=== PATIENT | male | born 1960 | race Caucasian/White ===

== ENCOUNTER → 2016-05-19 | Outpatient (CLI) | payer SELFPAY ==
[~2016-05-19] MED LIST: ADVAIR 500/501 DISK IH; DAILY VITE1 EAC1 PO; MEDROL32 MG PO; NAPROSYN500 MG PO; PRILOSEC20 MG PO; SPIRIVA1 INHALATI IH; VENTOLIN HFA18 GM IH
== END | disposition home or self-care (01) ==
LOC: RAD 08:36
DX: R16.0 Hepatomegaly, not elsewhere classified (principal); R10.9 Unspecified abdominal pain; R74.8 Abnormal levels of other serum enzymes
CPT/HCPCS: 76700

== ENCOUNTER 2016-05-23 12:46 | Inpatient (IN) | payer OTHER ==
[~2016-05-23] VITALS: Ht 172.7 cm; Wt 59.8 kg
[~2016-05-23 12:46] MED LIST changes: -ADVAIR 500/501 DISK IH; -DAILY VITE1 EAC1 PO; -MEDROL32 MG PO; -PRILOSEC20 MG PO; -SPIRIVA1 INHALATI IH; -TRAMADOL HCL50 MG PO; -VENTOLIN HFA18 GM IH
[2016-05-23] MEDS ORDERED: PRILOSEC20 MG PO (14:01)
[2016-05-23 14:37] LABS: HEMATOCRIT 47.5 % (38.0-50.0); MCH 29.2 PG (29.0-34.0); MCHC 33.1 G/DL (30.0-36.0); MCV 88.5 FL (86-99); MEAN PLAT.VOLUME 10.1 uM^3 (9.0-12.4); PLATELET COUNT 374 K/uL (156-360); RBC DIS.WIDTH-CV 14.4 % (11.8-14.6); RBC DIS.WIDTH-SD 46.1 % (39-53); RED BLOOD COUNT 5.37 M/uL (4.00-5.50); WHITE BLOOD COUNT 8.5 K/uL (4.1-10.2)
[2016-05-23 14:46] LABS: CHLORIDE 99 mEq/L (99-109); POTASSIUM 4.4 mEq/L (3.7-5.4); SODIUM 137 mEq/L (136-147)
[2016-05-23 14:48] LABS: GLUCOSE 165 mg/dL (70-99)
[2016-05-23 14:50] LABS: ANION GAP 11 MEQ/L (2-14); TOTAL BILIRUBIN 0.5 mg/dL (0.0-1.0)
[2016-05-23 14:52] LABS: ALKALINE PHOSPHATASE 164 IU/L (3-129); GFR ESTIMATE (CALCULATED) > 59 mL/min/
[2016-05-23 14:53] LABS: UREA NITROGEN (BUN) 18 mg/dL (9-23)
[2016-05-23 14:56] LABS: LIPASE 19 U/L (1.0-51.0)
[2016-05-23] MEDS ORDERED: VENTOLIN HFA18 GM IH (17:37)
[2016-05-23] MEDS ORDERED: DAILY VITE1 EAC1 PO (17:37)
[2016-05-23] MEDS ORDERED: ADVAIR 500/501 DISK IH (17:37)
[2016-05-23] MEDS ORDERED: SPIRIVA1 INHALATI IH (17:37)
[2016-05-23] MEDS ORDERED: MEDROL32 MG PO (17:38)
[2016-05-23 19:33] LABS: INTER. NORMALIZED RATIO 1.1; PROTHROMBIN TIME 11.7 (9.2-11.2); PTT 26.8 (25-32)
[2016-05-23 20:39] VITALS: BP 140/76
[2016-05-24 05:43] VITALS: BP 125/71
[2016-05-24 05:52] LABS: POINT-OF-CARE METER ID UU13113725
[2016-05-24 07:00] LABS: HEMATOCRIT 36.8 % (38.0-50.0); MCH 29.6 PG (29.0-34.0); MCHC 32.6 G/DL (30.0-36.0); MCV 90.6 FL (86-99); MEAN PLAT.VOLUME 10.3 uM^3 (9.0-12.4); PLATELET COUNT 286 K/uL (156-360); RBC DIS.WIDTH-CV 14.6 % (11.8-14.6); RBC DIS.WIDTH-SD 48.5 % (39-53)
[2016-05-24 07:02] LABS: RED BLOOD COUNT 4.06 M/uL (4.00-5.50); WHITE BLOOD COUNT 13.5 K/uL (4.1-10.2)
[2016-05-24 07:11] LABS: ALKALINE PHOSPHATASE 97 IU/L (3-129); ANION GAP 6 MEQ/L (2-14); CHLORIDE 105 MEQ/L (99-109); GFR ESTIMATE (CALCULATED) > 59 mL/min/; POTASSIUM 4.7 MEQ/L (3.7-5.4); SAMPLE HEMOLYSIS CHECK 0; SAMPLE ICTERIC CHECK 0; SAMPLE LIPEMIA CHECK 0; SODIUM 137 MEQ/L (136-147); TOTAL BILIRUBIN 0.5 MG/DL (0.0-1.0); UREA NITROGEN (BUN) 12 mg/dL (9-23)
[2016-05-24 07:14] LABS: GLUCOSE 120 mg/dL (70-99)
[2016-05-24 07:15] VITALS: BP 130/65
[2016-05-24 08:15] LABS: Estimated Average Glucose 126 mg/dL (70-123)
[2016-05-24 10:45] VITALS: BP 137/79
[2016-05-24 15:11] VITALS: BP 144/71
[2016-05-24 19:01] VITALS: BP 114/70
[2016-05-24 23:09] VITALS: BP 111/57
[2016-05-25 03:03] VITALS: BP 120/60
[2016-05-25 07:02] VITALS: BP 149/71
[2016-05-25 11:59] LABS: BASOPHIL COUNT 0.1 K/uL (0-0.1); EOSINOPHIL (%) 3.2 % (0-5); EOSINOPHIL COUNT 0.4 K/uL (0-0.3); HEMATOCRIT 40.7 % (38.0-50.0); IMMATURE GRANULOCYTE (%) 0.2 % (0.0-0.7); INSTRUMENT ABS NEUTROPHIL CT 9.2 K/uL; LYMPHOCYTE COUNT 0.9 K/uL (1.0-2.8); MCH 29.1 PG (29.0-34.0); MCHC 32.4 G/DL (30.0-36.0); MCV 89.6 FL (86-99); MEAN PLAT.VOLUME 10.1 uM^3 (9.0-12.4); MONOCYTE (%) 11.4 % (3-12); MONOCYTE COUNT 1.4 K/uL (0-0.8); NEUTROPHIL (%) 76.9 % (45-76); NEUTROPHIL COUNT 9.2 K/uL (1.8-6.4); PLATELET COUNT 305 K/uL (156-360); RBC DIS.WIDTH-CV 14.7 % (11.8-14.6); RBC DIS.WIDTH-SD 48.4 % (39-53); RED BLOOD COUNT 4.54 M/uL (4.00-5.50)
[2016-05-25 13:05] LABS: ANION GAP 9 MEQ/L (2-14); CHLORIDE 103 MEQ/L (99-109); GFR ESTIMATE (CALCULATED) > 59 mL/min/; POTASSIUM 4.2 MEQ/L (3.7-5.4); SAMPLE HEMOLYSIS CHECK 0; SAMPLE ICTERIC CHECK 0; SAMPLE LIPEMIA CHECK 0; SODIUM 140 MEQ/L (136-147); UREA NITROGEN (BUN) 8 mg/dL (9-23)
[2016-05-25 13:06] LABS: GLUCOSE 82 mg/dL (70-99)
[2016-05-25 15:42] VITALS: BP 151/86
[2016-05-25 22:58] VITALS: BP 136/71
[2016-05-26 03:46] VITALS: BP 127/63
[2016-05-26 07:41] VITALS: BP 136/81
[2016-05-26 12:16] VITALS: BP 152/80
[2016-05-26 17:12] VITALS: BP 171/79
[2016-05-26 19:44] VITALS: BP 158/85
[2016-05-26 22:59] VITALS: BP 132/79
[2016-05-27 03:25] VITALS: BP 142/82
[2016-05-27 07:33] LABS: BASOPHIL COUNT 0.1 K/uL (0-0.1); EOSINOPHIL (%) 14.1 % (0-5); EOSINOPHIL COUNT 1.2 K/uL (0-0.3); HEMATOCRIT 34.3 % (38.0-50.0); IMMATURE GRANULOCYTE (%) 0.4 % (0.0-0.7); INSTRUMENT ABS NEUTROPHIL CT 5.1 K/uL; MCH 29.3 PG (29.0-34.0); MCHC 32.7 G/DL (30.0-36.0); MCV 89.8 FL (86-99); MEAN PLAT.VOLUME 10.4 uM^3 (9.0-12.4); MONOCYTE (%) 11.3 % (3-12); MONOCYTE COUNT 0.9 K/uL (0-0.8); NEUTROPHIL COUNT 5.1 K/uL (1.8-6.4); PLATELET COUNT 253 K/uL (156-360); RBC DIS.WIDTH-CV 14.5 % (11.8-14.6); RED BLOOD COUNT 3.82 M/uL (4.00-5.50)
[2016-05-27 07:38] LABS: WHITE BLOOD COUNT 8.3 K/uL (4.1-10.2)
[2016-05-27 07:58] LABS: ANION GAP 8 MEQ/L (2-14); CHLORIDE 105 MEQ/L (99-109); GFR ESTIMATE (CALCULATED) > 59 mL/min/; POTASSIUM 4.3 MEQ/L (3.7-5.4); SAMPLE HEMOLYSIS CHECK 0; SAMPLE ICTERIC CHECK 0; SAMPLE LIPEMIA CHECK 0; SODIUM 144 MEQ/L (136-147); UREA NITROGEN (BUN) 5 mg/dL (9-23)
[2016-05-27 08:03] LABS: GLUCOSE 112 mg/dL (70-99)
[2016-05-27 08:28] VITALS: BP 138/75
[2016-05-27 12:03] VITALS: BP 148/77
[2016-05-27 16:51] VITALS: BP 151/70
[2016-05-27 18:43] VITALS: BP 142/78
[2016-05-27 22:40] VITALS: BP 141/62
[2016-05-28 00:49] LABS: POINT-OF-CARE METER ID UU13113725
[2016-05-28 03:56] VITALS: BP 158/72
[2016-05-28 05:45] LABS: POINT-OF-CARE METER ID UU13113725
[2016-05-28 06:55] LABS: BASOPHIL COUNT 0.1 K/uL (0-0.1); EOSINOPHIL COUNT 1.6 K/uL (0-0.3); HEMATOCRIT 33.6 % (38.0-50.0); IMMATURE GRANULOCYTE (%) 0.2 % (0.0-0.7); INSTRUMENT ABS NEUTROPHIL CT 4.7 K/uL; MCH 28.9 PG (29.0-34.0); MCHC 32.7 G/DL (30.0-36.0); MCV 88.4 FL (86-99); MEAN PLAT.VOLUME 10.1 uM^3 (9.0-12.4); MONOCYTE (%) 10.8 % (3-12); MONOCYTE COUNT 0.9 K/uL (0-0.8); NEUTROPHIL (%) 57.2 % (45-76); NEUTROPHIL COUNT 4.7 K/uL (1.8-6.4); PLATELET COUNT 283 K/uL (156-360); RBC DIS.WIDTH-CV 14.4 % (11.8-14.6); RBC DIS.WIDTH-SD 46.4 % (39-53); WHITE BLOOD COUNT 8.3 K/uL (4.1-10.2)
[2016-05-28 07:47] VITALS: BP 125/70
[2016-05-28 07:48] LABS: ANION GAP 7 MEQ/L (2-14); CHLORIDE 107 MEQ/L (99-109); GFR ESTIMATE (CALCULATED) > 59 mL/min/; GLUCOSE 100 mg/dL (70-99); SAMPLE HEMOLYSIS CHECK 0; SAMPLE ICTERIC CHECK 0; SAMPLE LIPEMIA CHECK 0; SODIUM 140 MEQ/L (136-147); UREA NITROGEN (BUN) 4 mg/dL (9-23)
[2016-05-28 07:49] LABS: POTASSIUM 3.3 MEQ/L (3.7-5.4)
[2016-05-28 11:06] VITALS: BP 142/77
[2016-05-28 12:56] LABS: POINT-OF-CARE METER ID UU13113725
[2016-05-28 18:03] LABS: POINT-OF-CARE METER ID UU13113725
[2016-05-28 18:33] VITALS: BP 139/76
[2016-05-28 19:15] VITALS: BP 173/79
[2016-05-28 22:43] VITALS: BP 140/65
[2016-05-29 07:49] VITALS: BP 137/62
[2016-05-29] MEDS ORDERED: TRAMADOL HCL50 MG PO (14:27)
[2016-05-29 15:05] VITALS: BP 134/68
[2016-05-29 18:15] LABS: C DIFF TOXIN NEGATIVE (NEGATIVE)
[2016-05-29 18:21] LABS: PROBE CHECK PASS; SPECIMEN PROCESSING CONTROL PASS
== END 2016-05-29 17:05 | disposition home or self-care (01) | DRG 345 ==
LOC: EME 12:46 → 5EAST 18:11 → EDOF 18:11 → 5EAST 20:06
PROVIDERS: Hospitalist; Internal Medicine; Physician Assistant Medical; Surgery
DX: C18.0 Malignant neoplasm of cecum (principal); K56.69 Other intestinal obstruction; C78.7 Secondary malignant neoplasm of liver and intrahepatic bile duct; R19.7 Diarrhea, unspecified; J44.9 Chronic obstructive pulmonary disease, unspecified; R91.8 Other nonspecific abnormal finding of lung field; R73.9 Hyperglycemia, unspecified; K21.9 Gastro-esophageal reflux disease without esophagitis; R68.3 Clubbing of fingers; Z87.891 Personal history of nicotine dependence
CPT/HCPCS: 71260; 74176; 80048; 80053; 82378; 82948; 83036; 83690; 85025; 85027; 85610; 85730; 87493; 88305; 88309; 88341 TC; 88342 TC; 93005; 94640; 94640 76; 94760; 94799; 99202; 99281; 99285; J0131; J0330; J1100; J1170; J1644; J1815; J2060; J2250; J2270; J2405; J2710; J3010; J7030; J7042; S0028

== ENCOUNTER → 2016-05-23 | Outpatient (CLI) | payer SELFPAY ==
[~2016-05-23] MED LIST changes: +TRAMADOL HCL50 MG PO
== END | disposition home or self-care (01) ==
LOC: RAD 08:08
DX: K76.9 Liver disease, unspecified (principal); R91.1 Solitary pulmonary nodule; J43.9 Emphysema, unspecified
CPT/HCPCS: 71260

== ENCOUNTER 2016-06-17 08:02 | Inpatient (IN) | payer OTHER ==
[~2016-06-17] VITALS: Ht 172.7 cm; Wt 56.0 kg
[~2016-06-17 08:02] MED LIST changes: +ADVAIR 500/501 DISK IH; +DAILY VITE1 EAC1 PO; +MEDROL32 MG PO; +PRAVACHOL10 MG PO; +PRILOSEC20 MG PO; +SINGULAIR10 MG PO; +SPIRIVA1 INHALATI IH; +TRAMADOL HCL50 MG PO; +VENTOLIN HFA18 GM IH; +VITAMIN D31000 UNIT PO
[2016-06-17 08:39] VITALS: BP 138/75
[2016-06-17 12:25] VITALS: BP 144/80
[2016-06-17 14:43] VITALS: BP 136/81
[2016-06-17 15:07] VITALS: BP 134/87
[2016-06-17 19:59] VITALS: BP 172/83
[2016-06-18] VITALS (7 sets, daily range): BP systolic 132–151; BP diastolic 74–85
[2016-06-19 04:31] VITALS: BP 156/75
[2016-06-19 05:11] VITALS: BP 108/50
[2016-06-19 07:53] VITALS: BP 142/76
== END 2016-06-19 11:40 | disposition home or self-care (01) | DRG 375 ==
LOC: SDC 08:02 → EDSTATUS 11:08 → 2SOUTH 11:08 → SDC 16:08 → 3EAST 18:09
DX: C18.9 Malignant neoplasm of colon, unspecified (principal); J95.811 Postprocedural pneumothorax; C78.7 Secondary malignant neoplasm of liver and intrahepatic bile duct; Y92.530 Ambulatory surgery center as the place of occurrence of the external cause; I48.91 Unspecified atrial fibrillation
CPT/HCPCS: 36415; 49405; 71010; 80053; 82378; 85025; 85610; 85730; 94799; C1751; C1769; J0690; J1100; J1644; J2250; J2765; J3010; J7050; S0020

== ENCOUNTER 2016-07-14 10:12 | Observation (INO) | payer OTHER ==
[~2016-07-14] VITALS: Ht 172.7 cm; Wt 58.8 kg
[~2016-07-14 10:12] MED LIST changes: +INCRUSE ELLI62.5 MCG IH; +PROTONIX40 MG PO; +THEO-24400 MG PO
[2016-07-14 11:23] LABS: HEMATOCRIT 46.6 % (38.0-50.0); MCHC 32.6 G/DL (30.0-36.0); MCV 88.9 FL (86-99); MEAN PLAT.VOLUME 10.1 uM^3 (9.0-12.4); PLATELET COUNT 350 K/uL (156-360); RBC DIS.WIDTH-SD 45.1 % (39-53); RED BLOOD COUNT 5.24 M/uL (4.00-5.50); WHITE BLOOD COUNT 7.7 K/uL (4.1-10.2)
[2016-07-14 11:37] LABS: CHLORIDE 98 mEq/L (99-109); POTASSIUM 4.5 mEq/L (3.7-5.4)
[2016-07-14 11:38] LABS: SODIUM 137 mEq/L (136-147)
[2016-07-14 11:39] LABS: GLUCOSE 125 mg/dL (70-99)
[2016-07-14 11:41] LABS: ANION GAP 12 MEQ/L (2-14)
[2016-07-14 11:43] LABS: GFR ESTIMATE (CALCULATED) > 59 mL/min/
[2016-07-14 11:44] LABS: UREA NITROGEN (BUN) 13 mg/dL (9-23)
[2016-07-14 11:45] LABS: TROP-I INTERPRETATION NEGATIVE; TROPONIN-I 0.03 ng/mL (0.0-0.30)
[2016-07-14 12:51] LABS: TOTAL BILIRUBIN 0.7 mg/dL (0.0-1.0)
[2016-07-14 12:52] LABS: ALKALINE PHOSPHATASE 255 IU/L (3-129)
[2016-07-14] MEDS ORDERED: PANTOPRAZOLE SO40 MG PO (14:20)
[2016-07-14] MEDS ORDERED: ADVAIR 250/501 DISK IH (14:20)
[2016-07-14] MEDS ORDERED: THEOPHYLLINE400 MG PO (14:20)
[2016-07-14] MEDS ORDERED: DUONEB 2.5-0.5 M3 ML AEROSOL (16:59)
[2016-07-14] MEDS ORDERED: SPIRIVA1 INHALATI IH (17:00)
[2016-07-14 18:34] VITALS: BP 132/78
[2016-07-14 20:00] VITALS: BP 143/79
[2016-07-14 20:07] LABS: TROP-I INTERPRETATION NEGATIVE; TROPONIN-I 0.13 ng/mL (0.0-0.30)
[2016-07-15 06:14] LABS: ANION GAP 9 MEQ/L (2-14); CHLORIDE 97 MEQ/L (99-109); GFR ESTIMATE (CALCULATED) > 59 mL/min/; GLUCOSE 113 mg/dL (70-99); POTASSIUM 3.9 MEQ/L (3.7-5.4); SAMPLE HEMOLYSIS CHECK 0; SAMPLE ICTERIC CHECK 0; SAMPLE LIPEMIA CHECK 0; SODIUM 133 MEQ/L (136-147); UREA NITROGEN (BUN) 16 mg/dL (9-23)
[2016-07-15 06:18] LABS: TROP-I INTERPRETATION NEGATIVE; TROPONIN-I 0.17 ng/mL (0.0-0.30)
[2016-07-15 12:13] VITALS: BP 112/67
== END 2016-07-15 15:28 | disposition home or self-care (01) ==
LOC: EME 10:12 → 5WEST 16:18 → EDOF 16:18 → 5WEST 17:24
PROVIDERS: Internal Medicine
DX: R07.89 Other chest pain (principal); C78.01 Secondary malignant neoplasm of right lung; C78.02 Secondary malignant neoplasm of left lung; C78.7 Secondary malignant neoplasm of liver and intrahepatic bile duct; J44.9 Chronic obstructive pulmonary disease, unspecified; Z85.038 Personal history of other malignant neoplasm of large intestine; Z87.891 Personal history of nicotine dependence; R73.03 Prediabetes; E78.5 Hyperlipidemia, unspecified
CPT/HCPCS: 71020; 71275; 80048; 80053; 84484; 85027; 93005; 94640; 99202; 99281; 99285; G0378; J1170; J1650; J2270; J7030

== ENCOUNTER 2016-08-26 15:50 | Observation (INO) | payer OTHER ==
[~2016-08-26] VITALS: Ht 172.7 cm; Wt 56.7 kg
[~2016-08-26 15:50] MED LIST changes: +ADVAIR 250/501 DISK IH; +DUONEB 2.5-0.5 M3 ML AEROSOL; +PANTOPRAZOLE SO40 MG PO; +THEOPHYLLINE400 MG PO
[2016-08-26 16:56] LABS: BASOPHIL COUNT 0.1 K/uL (0-0.1); EOSINOPHIL (%) 2.2 % (0-5); EOSINOPHIL COUNT 0.2 K/uL (0-0.3); HEMATOCRIT 39.2 % (38.0-50.0); IMMATURE GRANULOCYTE (%) 0.5 % (0.0-0.7); IMMATURE GRANULOCYTE COUNT 0.1 K/uL; INSTRUMENT ABS NEUTROPHIL CT 6.6 K/uL; LYMPHOCYTE COUNT 1.5 K/uL (1.0-2.8); MCH 28.7 PG (29.0-34.0); MCHC 32.4 G/DL (30.0-36.0); MCV 88.7 FL (86-99); MEAN PLAT.VOLUME 10.1 uM^3 (9.0-12.4); MONOCYTE (%) 12.9 % (3-12); MONOCYTE COUNT 1.3 K/uL (0-0.8); NEUTROPHIL (%) 68.4 % (45-76); NEUTROPHIL COUNT 6.6 K/uL (1.8-6.4); RBC DIS.WIDTH-CV 15.3 % (11.8-14.6); RBC DIS.WIDTH-SD 48.5 % (39-53); RED BLOOD COUNT 4.42 M/uL (4.00-5.50); WHITE BLOOD COUNT 9.7 K/uL (4.1-10.2)
[2016-08-26 16:58] LABS: PLATELET COUNT 205 K/uL (156-360)
[2016-08-26 17:06] LABS: CHLORIDE 103 mEq/L (99-109); POTASSIUM 3.8 mEq/L (3.7-5.4); SODIUM 139 mEq/L (136-147)
[2016-08-26 17:09] LABS: GLUCOSE 110 mg/dL (70-99)
[2016-08-26 17:10] LABS: ANION GAP 11 MEQ/L (2-14); TOTAL BILIRUBIN 0.5 mg/dL (0.0-1.0)
[2016-08-26 17:12] LABS: ALKALINE PHOSPHATASE 123 IU/L (3-129); GFR ESTIMATE (CALCULATED) > 59 mL/min/
[2016-08-26 17:13] LABS: UREA NITROGEN (BUN) 11 mg/dL (9-23)
[2016-08-26 17:16] LABS: LIPASE 40 U/L (1.0-51.0)
[2016-08-26 17:19] LABS: TROP-I INTERPRETATION NEGATIVE; TROPONIN-I < 0.01 ng/mL (0.0-0.30)
[2016-08-26] MEDS ORDERED: PROVENTIL,2.5 MG/3 M IH (20:23)
[2016-08-26] MEDS ORDERED: OXYCODONE HCL10 MG PO (20:24)
[2016-08-26] MEDS ORDERED: ZOFRAN ODT8 MG PO (20:24)
[2016-08-26] MEDS ORDERED: LIDOCAINE-PRIL1 EACH TP (20:25)
[2016-08-26 23:33] VITALS: BP 131/83
[2016-08-27 01:03] LABS: TROP-I INTERPRETATION NEGATIVE; TROPONIN-I < 0.01 ng/mL (0.0-0.30)
[2016-08-27 03:57] VITALS: BP 147/80
[2016-08-27 05:45] LABS: HEMATOCRIT 35.7 % (38.0-50.0); MCH 29.7 PG (29.0-34.0); MCHC 33.3 G/DL (30.0-36.0); MEAN PLAT.VOLUME 10.6 uM^3 (9.0-12.4); PLATELET COUNT 207 K/uL (156-360); RBC DIS.WIDTH-CV 15.4 % (11.8-14.6); RBC DIS.WIDTH-SD 49.7 % (39-53); RED BLOOD COUNT 4.01 M/uL (4.00-5.50); WHITE BLOOD COUNT 7.2 K/uL (4.1-10.2)
[2016-08-27 06:19] LABS: TROP-I INTERPRETATION NEGATIVE; TROPONIN-I < 0.01 ng/mL (0.0-0.30)
[2016-08-27 07:12] LABS: ADD MIUA? NO; BILIRUBIN NEGATIVE; BLOOD NEGATIVE; COLOR YELLOW ((YELLOW)); GLUCOSE (STRIP) NEGATIVE; KETONES NEGATIVE; LEUKOCYTES NEGATIVE; NITRITE NEGATIVE; PROTEIN (STRIP) NEGATIVE; SPECIFIC GRAVITY 1.029 (1.000-1.030); UROBILINOGEN 0.2 MG/DL (0.2-1.0)
[2016-08-27 07:27] VITALS: BP 128/78
[2016-08-27 08:03] LABS: GFR ESTIMATE (CALCULATED) > 59 mL/min/; GLUCOSE 81 mg/dL (70-99)
[2016-08-27 08:04] LABS: UREA NITROGEN (BUN) 10 mg/dL (9-23)
[2016-08-27 08:35] LABS: CHLORIDE 105 mEq/L (99-109); SODIUM 142 mEq/L (136-147)
[2016-08-27 08:38] LABS: ANION GAP 11 MEQ/L (2-14)
[2016-08-27 12:00] VITALS: BP 130/63
== END 2016-08-27 12:05 | disposition home or self-care (01) ==
LOC: EME 15:50 → EDOF 22:04 → 5WEST 23:27
PROVIDERS: Hospitalist; Physician Assistant
DX: R07.9 Chest pain, unspecified (principal); R50.9 Fever, unspecified; J43.9 Emphysema, unspecified; R91.8 Other nonspecific abnormal finding of lung field; R16.0 Hepatomegaly, not elsewhere classified; C18.9 Malignant neoplasm of colon, unspecified; C78.7 Secondary malignant neoplasm of liver and intrahepatic bile duct; Z92.21 Personal history of antineoplastic chemotherapy; J44.9 Chronic obstructive pulmonary disease, unspecified; Z87.891 Personal history of nicotine dependence; F12.10 Cannabis abuse, uncomplicated; Z83.3 Family history of diabetes mellitus; Z84.1 Family history of disorders of kidney and ureter
CPT/HCPCS: 71020; 71275; 80048; 80053; 81003; 83605; 83690; 84484; 85025; 85027; 87040; 93005; 94640; 99202; 99281; 99285; G0378

== ENCOUNTER 2017-02-20 08:41 | Inpatient (IN) | payer OTHER ==
[~2017-02-20] VITALS: Ht 172.7 cm; Wt 54.7 kg
[~2017-02-20 08:41] MED LIST changes: +ACID CONTROL150 MG PO; +LIDOCAINE-PRIL1 EACH TP; +LORAZEPAM0.5 MG PO; +MOTRIN600 MG PO; +OXYCODONE HCL10 MG PO; +PROVENTIL,2.5 MG/3 M IH; +ZOFRAN ODT8 MG PO
[2017-02-20 10:17] LABS: EOSINOPHIL (%) 0 % (0-5); HEMATOCRIT 44.8 % (38.0-50.0); IMMATURE GRANULOCYTE (%) 0.6 % (0.0-0.7); INSTRUMENT ABS NEUTROPHIL CT 3.5 K/uL; LYMPHOCYTE COUNT 0.6 K/uL (1.0-2.8); MCHC 34.6 G/DL (30.0-36.0); MCV 92.6 FL (86-99); MEAN PLAT.VOLUME 10.7 uM^3 (9.0-12.4); MONOCYTE (%) 12.4 % (3-12); MONOCYTE COUNT 0.6 K/uL (0-0.8); NEUTROPHIL (%) 74.2 % (45-76); NEUTROPHIL COUNT 3.5 K/uL (1.8-6.4); PLATELET COUNT 109 K/uL (156-360); RBC DIS.WIDTH-CV 16.2 % (11.8-14.6); RBC DIS.WIDTH-SD 54.9 % (39-53); RED BLOOD COUNT 4.84 M/uL (4.00-5.50); WHITE BLOOD COUNT 4.8 K/uL (4.1-10.2)
[2017-02-20 10:31] LABS: CHLORIDE 100 mEq/L (99-109); POTASSIUM 4.4 mEq/L (3.7-5.4); SODIUM 136 mEq/L (136-147)
[2017-02-20 10:33] LABS: GLUCOSE 119 mg/dL (70-99)
[2017-02-20 10:34] LABS: ANION GAP 12 MEQ/L (2-14)
[2017-02-20 10:37] LABS: ALKALINE PHOSPHATASE 157 IU/L (3-129); GFR ESTIMATE (CALCULATED) 37 mL/min/ (58.99-99999)
[2017-02-20 10:38] LABS: UREA NITROGEN (BUN) 43 mg/dL (9-23)
[2017-02-20 11:06] LABS: TOTAL BILIRUBIN 0.5 mg/dL (0.0-1.0)
[2017-02-20 11:39] LABS: ADD MIUA? YES; BILIRUBIN NEGATIVE; BLOOD SMALL; COLOR AMBER ((YELLOW)); GLUCOSE (STRIP) NEGATIVE; KETONES NEGATIVE; LEUKOCYTES NEGATIVE; NITRITE NEGATIVE; PROTEIN (STRIP) 100; SPECIFIC GRAVITY 1.021 (1.000-1.030); UROBILINOGEN 0.2 MG/DL (0.2-1.0)
[2017-02-20 11:52] LABS: BACTERIA RARE /HPF; CALCIUM OXALATE CRYSTALS 1+ /HPF; EPITHELIAL CELLS RARE /HPF; HYALINE CASTS 40-50 /LPF; MUCUS 1+ /LPF; UCUL ADDED? YES; WHITE BLOOD CELLS 15-20 /HPF (0-5); WHITE CELL CASTS 0-5 /LPF
[2017-02-20] MEDS ORDERED: RANITIDINE HCL300 MG PO (13:15)
[2017-02-20] MEDS ORDERED: MOTRIN800 MG PO (13:16)
[2017-02-20 17:56] VITALS: BP 123/61
[2017-02-21] VITALS: BP 116/64
[2017-02-21 06:50] LABS: ANION GAP 10 MEQ/L (2-14); CHLORIDE 101 MEQ/L (99-109); GFR ESTIMATE (CALCULATED) > 59 mL/min/ (58.99-99999); GLUCOSE 92 mg/dL (70-99); POTASSIUM 4.1 MEQ/L (3.7-5.4); SAMPLE HEMOLYSIS CHECK 0; SAMPLE ICTERIC CHECK 0; SAMPLE LIPEMIA CHECK 0; SODIUM 138 MEQ/L (136-147); UREA NITROGEN (BUN) 29 mg/dL (9-23)
[2017-02-21 07:36] VITALS: BP 144/68
[2017-02-21 15:45] VITALS: BP 124/59
[2017-02-21 23:12] VITALS: BP 118/71
[2017-02-22 07:38] VITALS: BP 117/71
[2017-02-22 16:45] VITALS: BP 155/81
[2017-02-22 23:34] VITALS: BP 128/67
[2017-02-23 08:08] VITALS: BP 132/78
[2017-02-23 10:56] LABS: ANION GAP 8 MEQ/L (2-14); CHLORIDE 100 MEQ/L (99-109); GFR ESTIMATE (CALCULATED) > 59 mL/min/ (58.99-99999); GLUCOSE 235 mg/dL (70-99); POTASSIUM 4.6 MEQ/L (3.7-5.4); SAMPLE HEMOLYSIS CHECK 0; SAMPLE ICTERIC CHECK 0; SAMPLE LIPEMIA CHECK 0; SODIUM 136 MEQ/L (136-147); UREA NITROGEN (BUN) 20 mg/dL (9-23)
[2017-02-23] MEDS ORDERED: OSELTAMIVIR PHO75 MG PO (12:37)
[2017-02-23] MEDS ORDERED: PREDNISONE5 MG PO (12:37)
[2017-02-23] MEDS ORDERED: LORAZEPAM0.5 MG PO (12:37)
[2017-02-23] MEDS ORDERED: SPIRIVA RESPIMAT4 GM IH (12:37)
[2017-02-23] MEDS ORDERED: MONTELUKAST SOD10 MG PO (12:37)
== END 2017-02-23 16:34 | disposition home or self-care (01) | DRG 682 ==
LOC: EME 08:41 → EDOF 12:37 → 5EAST 12:37 → ENRESERV 12:43 → 5EAST 17:11
PROVIDERS: Emergency Medicine; Internal Medicine
DX: N17.9 Acute kidney failure, unspecified (principal); N39.0 Urinary tract infection, site not specified; J10.1 Influenza due to other identified influenza virus with other respiratory manifestations; J44.1 Chronic obstructive pulmonary disease with (acute) exacerbation; E86.0 Dehydration; K21.9 Gastro-esophageal reflux disease without esophagitis; D69.6 Thrombocytopenia, unspecified; J96.01 Acute respiratory failure with hypoxia; R53.1 Weakness; C18.9 Malignant neoplasm of colon, unspecified; Z92.21 Personal history of antineoplastic chemotherapy; Z87.891 Personal history of nicotine dependence; Z93.3 Colostomy status; Z68.1 Body mass index [BMI] 19.9 or less, adult; Z83.3 Family history of diabetes mellitus
CPT/HCPCS: 71020; 80048; 80053; 81003; 83605; 85025; 87040; 87086; 87502; 94640; 94640 76; 94760; 94799; 99202; 99281; 99285; J1650; J2405; J2930; J7030; J7512

== ENCOUNTER → 2017-04-07 | Outpatient (CLI) | payer OTHER ==
[~2017-04-07] MED LIST changes: +MONTELUKAST SOD10 MG PO; +MOTRIN800 MG PO; +OSELTAMIVIR PHO75 MG PO; +PREDNISONE5 MG PO; +RANITIDINE HCL300 MG PO; +SPIRIVA RESPIMAT4 GM IH
== END | disposition home or self-care (01) ==
LOC: AMB 13:26
PROC: 0HB6XZZ Excision of Back Skin, External Approach (ICD-10-PCS; principal; 2017-04-07)
PROC: 0HD6XZZ Extraction of Back Skin, External Approach (ICD-10-PCS; principal; 2017-04-07)
DX: L72.0 Epidermal cyst (principal); L02.219 Cutaneous abscess of trunk, unspecified; Z87.09 Personal history of other diseases of the respiratory system; Z87.891 Personal history of nicotine dependence; Z82.49 Family history of ischemic heart disease and other diseases of the circulatory system; Z80.3 Family history of malignant neoplasm of breast; Z84.1 Family history of disorders of kidney and ureter
CPT/HCPCS: 87070; 87075; 87076; 87205

== ENCOUNTER 2017-10-04 13:59 | Inpatient (IN) | payer OTHER ==
[~2017-10-04] VITALS: Ht 172.7 cm; Wt 67.0 kg
[~2017-10-04 13:59] MED LIST changes: -ADVAIR 250/501 DISK IH; -MOTRIN800 MG PO; +NITROGLYCERIN0.4 MG SL; +SCOPOLAMINE1 EACH TD; +XYLOCAINE VISC100 ML PO
[2017-10-04 14:28] LABS: HEMATOCRIT 45.9 % (38.0-50.0); MCH 29.7 PG (29.0-34.0); MCHC 33.6 G/DL (30.0-36.0); MCV 88.4 FL (86-99); RBC DIS.WIDTH-CV 18.5 % (11.8-14.6); RBC DIS.WIDTH-SD 55.1 % (39-53); WHITE BLOOD COUNT 6.1 K/uL (4.1-10.2)
[2017-10-04 14:30] LABS: HEMOGLOBIN 15.4 G/DL (12.5-16.6); PLATELET COUNT 346 K/uL (156-360); RED BLOOD COUNT 5.19 M/uL (4.00-5.50)
[2017-10-04 14:38] LABS: ALBUMIN 4.2 g/dL (3.2-4.8); CHLORIDE 99 mEq/L (99-109); SODIUM 138 mEq/L (136-147)
[2017-10-04 14:40] LABS: GLUCOSE 122 mg/dL (70-99)
[2017-10-04 14:41] LABS: TOTAL PROTEIN 8.1 g/dL (6.4-8.3)
[2017-10-04 14:42] LABS: TOTAL BILIRUBIN 0.7 mg/dL (0.0-1.0)
[2017-10-04 14:44] LABS: ALKALINE PHOSPHATASE 150 IU/L (3-129); GFR ESTIMATE (CALCULATED) > 59 mL/min/ (58.99-99999)
[2017-10-04 14:45] LABS: UREA NITROGEN (BUN) 16 mg/dL (9-23)
[2017-10-04 14:46] LABS: AST (GOT) 22 IU/L (2-34)
[2017-10-04 14:47] LABS: ALT (GPT) 26 IU/L (3-49)
[2017-10-04 16:08] LABS: TROP-I INTERPRETATION NEGATIVE; TROPONIN-I < 0.01 ng/mL (0.0-0.30)
[2017-10-04 19:24] LABS: APPEARANCE SL.HAZY ((CLEAR)); BILIRUBIN NEGATIVE; BLOOD NEGATIVE; COLOR YELLOW ((YELLOW)); GLUCOSE (STRIP) NEGATIVE; KETONES NEGATIVE; LEUKOCYTES NEGATIVE; NITRITE NEGATIVE; PROTEIN (STRIP) NEGATIVE; SPECIFIC GRAVITY 1.025 (1.000-1.030); UROBILINOGEN 0.2 MG/DL (0.2-1.0)
[2017-10-04] MEDS ORDERED: DUONEB 2.5-0.5 M3 ML AEROSOL (19:33)
[2017-10-04] MEDS ORDERED: METOCLOPRAMIDE H5 MG PO (19:33)
[2017-10-04] MEDS ORDERED: XANAX0.25 MG PO (19:33)
[2017-10-04 19:58] LABS: BACTERIA NONE SEEN /HPF; EPITHELIAL CELLS RARE /HPF; MUCUS 2+ /LPF; RED BLOOD CELLS 0-5 /HPF (0-5); UCUL ADDED? NO; WHITE BLOOD CELLS 0-5 /HPF (0-5)
[2017-10-05] VITALS (8 sets, daily range): BP systolic 122–170; BP diastolic 64–84
[2017-10-05 06:17] LABS: HEMATOCRIT 39.7 % (38.0-50.0); MCH 29.3 PG (29.0-34.0); MCHC 32.7 G/DL (30.0-36.0); MCV 89.6 FL (86-99); PLATELET COUNT 277 K/uL (156-360); RBC DIS.WIDTH-CV 17.5 % (11.8-14.6); RBC DIS.WIDTH-SD 56.4 % (39-53); RED BLOOD COUNT 4.43 M/uL (4.00-5.50); WHITE BLOOD COUNT 7.7 K/uL (4.1-10.2)
[2017-10-05 06:25] LABS: CHLORIDE 99 MEQ/L (99-109); CREATININE 0.8 MG/DL (0.6-1.3); GFR ESTIMATE (CALCULATED) > 59 mL/min/ (58.99-99999); GLUCOSE 180 mg/dL (70-99); POTASSIUM 4.9 MEQ/L (3.7-5.4); SODIUM 135 MEQ/L (136-147); UREA NITROGEN (BUN) 17 mg/dL (9-23)
[2017-10-05 11:47] LABS: TROP-I INTERPRETATION NEGATIVE; TROPONIN-I < 0.01 ng/mL (0.0-0.30)
[2017-10-05 17:10] LABS: TROP-I INTERPRETATION NEGATIVE; TROPONIN-I < 0.01 ng/mL (0.0-0.30)
[2017-10-05 23:13] LABS: TROP-I INTERPRETATION NEGATIVE; TROPONIN-I < 0.01 ng/mL (0.0-0.30)
[2017-10-06 04:04] VITALS: BP 156/77
[2017-10-06 05:53] LABS: HEMATOCRIT 35.6 % (38.0-50.0); HEMOGLOBIN 11.6 G/DL (12.5-16.6); MCH 29.4 PG (29.0-34.0); MCHC 32.6 G/DL (30.0-36.0); MCV 90.1 FL (86-99); PLATELET COUNT 200 K/uL (156-360); RBC DIS.WIDTH-CV 17.7 % (11.8-14.6); RBC DIS.WIDTH-SD 57.4 % (39-53); RED BLOOD COUNT 3.95 M/uL (4.00-5.50); WHITE BLOOD COUNT 4.8 K/uL (4.1-10.2)
[2017-10-06 06:13] LABS: CHLORIDE 100 MEQ/L (99-109); CREATININE 0.8 MG/DL (0.6-1.3); GFR ESTIMATE (CALCULATED) > 59 mL/min/ (58.99-99999); GLUCOSE 127 mg/dL (70-99); POTASSIUM 4.2 MEQ/L (3.7-5.4); SODIUM 137 MEQ/L (136-147); UREA NITROGEN (BUN) 8 mg/dL (9-23)
[2017-10-06 08:09] VITALS: BP 160/72
[2017-10-06 11:43] VITALS: BP 131/71
[2017-10-06 16:08] VITALS: BP 165/77
[2017-10-06 19:35] VITALS: BP 136/61
[2017-10-06 23:45] VITALS: BP 140/76
[2017-10-07 04:45] VITALS: BP 149/72
[2017-10-07 07:06] LABS: HEMATOCRIT 30.5 % (38.0-50.0); HEMOGLOBIN 9.8 G/DL (12.5-16.6); MCH 29.1 PG (29.0-34.0); MCHC 32.1 G/DL (30.0-36.0); MCV 90.5 FL (86-99); PLATELET COUNT 180 K/uL (156-360); RBC DIS.WIDTH-CV 17.3 % (11.8-14.6); RBC DIS.WIDTH-SD 56.9 % (39-53); RED BLOOD COUNT 3.37 M/uL (4.00-5.50); WHITE BLOOD COUNT 4.3 K/uL (4.1-10.2)
[2017-10-07 07:13] VITALS: BP 138/76
[2017-10-07 07:29] LABS: CHLORIDE 100 MEQ/L (99-109); CREATININE 0.7 MG/DL (0.6-1.3); GFR ESTIMATE (CALCULATED) > 59 mL/min/ (58.99-99999); GLUCOSE 117 mg/dL (70-99); POTASSIUM 3.7 MEQ/L (3.7-5.4); SODIUM 138 MEQ/L (136-147); UREA NITROGEN (BUN) 4 mg/dL (9-23)
[2017-10-07 11:05] VITALS: BP 168/79
[2017-10-07 15:10] VITALS: BP 151/70
[2017-10-07 21:41] VITALS: BP 140/67
[2017-10-07 23:44] VITALS: BP 134/73
[2017-10-08] VITALS (8 sets, daily range): BP systolic 136–178; BP diastolic 71–89
[2017-10-08 06:11] LABS: BASOPHIL (%) 0.7 % (0-1); EOSINOPHIL (%) 10.5 % (0-5); EOSINOPHIL COUNT 0.4 K/uL (0-0.3); HEMATOCRIT 31.2 % (38.0-50.0); HEMOGLOBIN 10.2 G/DL (12.5-16.6); IMMATURE GRANULOCYTE (%) 0.2 % (0.0-0.7); LYMPHOCYTE (%) 24.7 % (15-42); MCH 29.2 PG (29.0-34.0); MCHC 32.7 G/DL (30.0-36.0); MCV 89.4 FL (86-99); MONOCYTE (%) 11.7 % (3-12); MONOCYTE COUNT 0.5 K/uL (0-0.8); NEUTROPHIL (%) 52.2 % (45-76); NEUTROPHIL COUNT 2.1 K/uL (1.8-6.4); PLATELET COUNT 189 K/uL (156-360); RBC DIS.WIDTH-CV 17.2 % (11.8-14.6); RBC DIS.WIDTH-SD 55.8 % (39-53); RED BLOOD COUNT 3.49 M/uL (4.00-5.50); WHITE BLOOD COUNT 4.1 K/uL (4.1-10.2)
[2017-10-08 06:40] LABS: CHLORIDE 103 MEQ/L (99-109); CREATININE 0.6 MG/DL (0.6-1.3); GFR ESTIMATE (CALCULATED) > 59 mL/min/ (58.99-99999); GLUCOSE 109 mg/dL (70-99); SODIUM 141 MEQ/L (136-147); UREA NITROGEN (BUN) 5 mg/dL (9-23)
[2017-10-08 06:48] LABS: POTASSIUM 4.5 MEQ/L (3.7-5.4)
[2017-10-09 03:57] VITALS: BP 160/78
[2017-10-09 05:43] LABS: BASOPHIL COUNT 0.1 K/uL (0-0.1); EOSINOPHIL (%) 11.3 % (0-5); EOSINOPHIL COUNT 0.6 K/uL (0-0.3); HEMATOCRIT 30.8 % (38.0-50.0); IMMATURE GRANULOCYTE (%) 0.2 % (0.0-0.7); LYMPHOCYTE (%) 27.8 % (15-42); LYMPHOCYTE COUNT 1.4 K/uL (1.0-2.8); MCH 29.2 PG (29.0-34.0); MCHC 32.5 G/DL (30.0-36.0); MCV 90.1 FL (86-99); MONOCYTE (%) 14.5 % (3-12); MONOCYTE COUNT 0.7 K/uL (0-0.8); NEUTROPHIL (%) 45.2 % (45-76); NEUTROPHIL COUNT 2.2 K/uL (1.8-6.4); PLATELET COUNT 175 K/uL (156-360); RBC DIS.WIDTH-CV 17.3 % (11.8-14.6); RBC DIS.WIDTH-SD 56.9 % (39-53); RED BLOOD COUNT 3.42 M/uL (4.00-5.50)
[2017-10-09 06:02] LABS: CHLORIDE 102 MEQ/L (99-109); CREATININE 0.6 MG/DL (0.6-1.3); GFR ESTIMATE (CALCULATED) > 59 mL/min/ (58.99-99999); GLUCOSE 120 mg/dL (70-99); SODIUM 141 MEQ/L (136-147); UREA NITROGEN (BUN) 3 mg/dL (9-23)
[2017-10-09 07:53] VITALS: BP 1148/69
[2017-10-09 11:12] VITALS: BP 140/64
[2017-10-09] MEDS ORDERED: COLACE100 MG PO (12:26)
[2017-10-09] MEDS ORDERED: ROXICODONE5 MG PO (12:26)
[2017-10-09 15:50] VITALS: BP 139/67
== END 2017-10-09 18:05 | disposition home or self-care (01) | DRG 336 ==
LOC: EME 13:59 → RME 13:59 → SDC 21:35 → 3EAST 22:46
PROVIDERS: Hospitalist; Physician Assistant; Surgery
PROC: 0DNA0ZZ Release Jejunum, Open Approach (ICD-10-PCS; principal; 2017-10-04)
PROC: 0DBA0ZX Excision of Jejunum, Open Approach, Diagnostic (ICD-10-PCS; principal; 2017-10-04)
DX: K56.50 Intestinal adhesions [bands], unspecified as to partial versus complete obstruction (principal); R18.8 Other ascites; C78.7 Secondary malignant neoplasm of liver and intrahepatic bile duct; C77.2 Secondary and unspecified malignant neoplasm of intra-abdominal lymph nodes; K46.9 Unspecified abdominal hernia without obstruction or gangrene; R07.89 Other chest pain; J44.9 Chronic obstructive pulmonary disease, unspecified; K21.9 Gastro-esophageal reflux disease without esophagitis; F41.9 Anxiety disorder, unspecified; Z85.038 Personal history of other malignant neoplasm of large intestine; Z92.21 Personal history of antineoplastic chemotherapy; Z92.3 Personal history of irradiation; Z90.49 Acquired absence of other specified parts of digestive tract; Z87.891 Personal history of nicotine dependence
CPT/HCPCS: 74018; 80048; 80053; 81003; 82948; 84484; 85025; 85027; 87070; 87075; 87205; 88305; 93005; 94640; 94760; 94799; 99281; 99285; C9113; J1170; J1650; J2270; J2405; J2710; J2765; J3010; J7030; J7120; J7643; S0074